=== PATIENT | male | born 1975 | race Caucasian/White ===

== ENCOUNTER → 2022-04-26 | Outpatient (CLI) | payer BC ==
--- NOTE | 2022-04-27 08:52 | XR ---
EXAMINATION TYPE: XR KUB DATE OF EXAM: 04/26/2022 Comparison: None Clinical History: 46-year-old male right flank pain for 6 months, N20.0 Calculus kidney Findings: Pelvic phleboliths. Scattered mild stool burden. Cholecystectomy clips. No definite suspicious calcif ications are radiographically apparent. Nonobstructive bowel gas pattern. Impression: Mild stool burden. Nonobstructive bowel gas pattern. Pelvic phleboliths.
== END | disposition home or self-care (01) ==
LOC: RADXRMAIN 16:10
PROVIDERS: ATTEND Urology
DX: I86.2 Pelvic varices (principal); N20.0 Calculus of kidney
CPT/HCPCS: 74018

== ENCOUNTER → 2022-05-09 | Outpatient (CLI) | payer BC ==
--- NOTE | 2022-05-09 17:00 | CT ---
EXAMINATION TYPE: CT abdomen pelvis wo con DATE OF EXAM: 05/09/2022 HISTORY: Calculus of kidney CT DLP: 1340 mGycm. Automated Exposure Control for Dose Reduction was Utilized. TECHNIQUE: CT scan of the abdomen and pelvis is performed without oral or IV contrast. COMPARISON: Abdominal x-ray April 26, 2022 FINDINGS: Within the limitations of a non-contrast study, the following observations are made. LUNG BASES: No significant abnormality is appreciated. LIVER/GB: Cholecystectomy clip is seen. PANCREAS: No significant abnormality is seen. SPLEEN: No significant abnormality is seen. ADRENALS: No significant abnormality is seen. KIDNEYS: No definite left-sided nephrolithiasis. Single 1 to 2 mm calculus right kidney midpole level coronal image 76. No hydronephrosis or obstructing ureteral calculi are seen bilaterally. No intralu harvey calculus in the bladder. BOWEL: Normal-appearing appendix from base of cecum in the right pelvis. No suspicious small or large bowel dilatation. GENITAL ORGANS: Normal size prostate gland. A few adjacent scattered pelvic phleboliths. LYMPH NODES: No greater than 1cm abdominal or pelvic lymph nodes are appreciated. OSSEOUS STRUCTURES: Mild to moderate disc space narrowing with vacuum disc phenomenon at L5-S1 level. OTHER: Small size fat-containing umbilical hernia. IMPRESSION: Single 1 to 2 mm nonobstructing right renal calculus.
== END | disposition home or self-care (01) ==
LOC: RADCTMAIN 16:10
PROVIDERS: ATTEND Urology
DX: N20.0 Calculus of kidney (principal)
CPT/HCPCS: 74176